=== PATIENT | female | born 1990 | race Caucasian/White ===

== ENCOUNTER 2017-01-12 20:13 | Emergency (ER) | payer OTHER ==
[~2017-01-12] VITALS: Ht 165.1 cm; Wt 61.4 kg
[~2017-01-12 20:13] MED LIST: OXYC1TAB11 PO; PNV1TABL57 PO
[2017-01-12 20:27] VITALS: BP 112/81; PULSE 85; RESP 16; O2SAT 99
--- NOTE | 2017-01-12 21:13 | ED.REPORT ---
HPI-Extremity Problem Upper Date of Service Jan 12, 2017 ED Provider: Ryley Drake DO The patient is a 26 year old female who presents to the ED with right thumb pain hurting it playing softball earlier today. The thumb is swollen and red. Pain is exacerbated by movement. Nursing Notes Stated Complaint: RIGHT THUMB INJURY Chief Complaint: Extremity Trauma Nursing Notes Reviewed: Yes Allergies: Coded Allergies: No Known Allergies (Unverified , 05/03/12) Miscellaneous Medications Oxycodone/APAP-Expunged Drug, Do Not Renew! (Percocet-Expunged Drug, Do Not Renew!) 1 Each Tablet 0.5 EACH PO PNV CMB#95/FERROUS FUMARATE/FA-Expunged Drug, (-Expunged Drug, Do Not Renew!) 1 Each Tablet 1 EACH PO General Time Seen by MD: 21:13 Chief Complaint Finger injury right 1 Hx Obtained From: Patient Arrived By: Walk-in Onset Occurred: Just prior to arrival Symptom Duration: Since onset Caused by: Sports injury Context: Occurred at: Sports injury Location: : Finger right 1 Quality: Painful Severity: Current: Mild Recent Healthcare: No recent doctor visit, No recent hospitalization Similar Sx Previous: No Review of Systems Constitutional: Denies: Fever Musculoskeletal: Reports: Joint pain (right thumb), Joint swelling (right thumb ) Neurologic: Denies: Change LOC, Numbness, Weakness Complete sys rev & neg: except as marked. Physical Exam Initial Vital Signs Vital Signs (First) Date Time Temp Pulse Resp B/P Pulse Ox O2 Delivery O2 Flow Rate FiO2 01/12/17 20:27 36.1 85 16 112/81 99 Room Air Initial VS: Reviewed General/Constitutional: Well-developed, Well-nourished Head / Eyes: Atraumatic, Normocephalic, PERRL ENT: Mucous membranes moist Respiratory: Breath sounds normal, Clear to auscultation Cardiovascular: Regular rate & rhythm, Heart sounds normal Abdomen / GI: Soft, Non-tender, No guarding, No rebound Back: No CVA tenderness Skin: Warm, Dry Right Thumb: Positive: ROM reduced, Swelling present..., Tenderness present... , Warmth present right thumb swelling at the distal interphalangeal joint tendons seem to be intact Interpretation & Diagnostics X-Ray Interpretation Xray Interpretation: IMPRESSION: No visualized acute fracture or dislocation. However, if clinical concern and/or pain persist, short interval imaging followup in 7-10 days is recommended, as occult injury cannot be definitively excluded. Dictated by: Marily Rosen M.D. on 01/12/2017 at 21:15 Approved by: Marily Rosen M.D. on 01/12/2017 at 21:15 X-Ray Ordered: Hand right Interpretation / Wet Read by: Interpret - Radiologist Interpretation: Normal exam Re-Eval/Medical Decision Re-Evaluation/Progress : Time of Eval: 21:20 Patient Status: Pain improved Re-Evaluation/Progress Note: Pt rechecked. X-ray does not show signs of a fracture. Plan to splint and discharge. F/U and RTER warnings given. Pt understands and agrees with plan. Counseled Regarding: Diagnosis, Lab results, Need for follow-up, When/why to return to ED Discharge & Departure Impression: Primary Impression: Thumb contusion Encounter type: initial encounter Damage to nail status: without damage Laterality: right Qualified Code: S60.011A - Contusion of right thumb without damage to nail, initial encounter Disposition: Home Discharge Condition All VS Reviewed: Yes Condition: Stable Patient Instructions: Finger Sprain (ED), Contusions in Adults (ED) Additional Instructions: A fracture was not identified on the x-rays. A hairline fracture could certainly be non-radiographically evident. If pain persists beyond 7 days then follow up and have repeat x-rays. Keep your finger splinted until then. Take Motrin 600 mg as directed for moderate pain. Take 1-2 [place] every 6 hours as needed for more severe pain. Do not drive or drink or consume acetaminophen while taking the Motrin. Return for any problems or any new or worsening symptoms. Follow up with your primary care physician for recheck and repeat x- rays if pain persists. Referrals: Michael Russo MD (PCP) Rafaelibmaylin Attestation Portion of this note were transcribed by Bárbara Hernandez. I, Dr. Drake, personally performed the history, physical exam, and medical decision-making: I reviewed and confirmed the accuracy for the information in the transcribed note. Signed by: manuel De Leon, 01/12/17 2200 copies to: Michael Russo MD, Todd P DO Jan 12, 2017 21:13 Bárbara Hernandez Jan 12, 2017 21:28
--- NOTE | 2017-01-12 21:17 | DRSVH ---
PROCEDURE: X-RAY FINGERS, TWO VIEWS INDICATIONS: PAIN TECHNIQUE: AP hand, 2 views of the first finger(s) acquired. COMPARISON: None. FINDINGS: Bones: No fractures or dislocations. No suspicious bony lesions. Soft tissues: No suspicious soft tissue calcifications. IMPRESSION: No visualized acute fracture or dislocation. However, if clinical concern and/or pain pe rsist, short interval imaging followup in 7-10 days is recommended, as occult injury cannot be defini tively excluded. Dictated by: Marily Rosen M.D. on 01/12/2017 at 21:15 Approved by: Marily Rosen M.D. on 01/12/2017 at 21:15
[2017-01-12] MEDS ORDERED: _HYDROcodone/APAP 5-325 mg Tablet PO PRN (21:30)
== END 2017-01-12 22:02 | disposition home or self-care (01) ==
LOC: SED 20:13
DX: S60.011A Contusion of right thumb without damage to nail, initial encounter (principal); W21.07XA Struck by softball, initial encounter; Y92.328 Other athletic field as the place of occurrence of the external cause; Y93.64 Activity, baseball; Y99.8 Other external cause status; I10 Essential (primary) hypertension

== ENCOUNTER 2017-02-02 16:59 | Emergency (ER) | payer OTHER ==
[~2017-02-02] VITALS: Ht 165.1 cm; Wt 65.0 kg
[2017-02-02 17:12] VITALS: BP 110/68; PULSE 77; RESP 15; O2SAT 100
--- NOTE | 2017-02-02 18:05 | ED.REPORT ---
HPI-Extremity Problem Lower Date of Service February 02, 2017 ED Provider: Dr. Drake Pt is a healthy 26 year old female who presents to the ED with concerns for L knee pain after landing on her knee strangely at a gym. She reports that she was attempting to do a cartwheel off a balance beam, when she fell off and landed on her leg abnormally. She reports that she previously tore her meniscus on this knee, she reports that this pain was more intense than her previous injury. Sje denies any trauma to her head or LOC upon her fall. She has no other complaints. Nursing Notes Stated Complaint: POSSIBLE TORN ALC, LEFT Chief Complaint: Extremity Trauma Nursing Notes Reviewed: Yes Allergies: Coded Allergies: hydrocodone (Verified Adverse Reaction, Intermediate, Nausea,Vomiting, ) Miscellaneous Medications Oxycodone/APAP-Expunged Drug, Do Not Renew! (Percocet-Expunged Drug, Do Not Renew!) 1 Each Tablet 0.5 EACH PO PNV CMB#95/FERROUS FUMARATE/FA-Expunged Drug, (-Expunged Drug, Do Not Renew!) 1 Each Tablet 1 EACH PO General Time Seen by MD: 18:05 Chief Complaint Knee injury left Hx Obtained From: Patient Arrived By: Walk-in Onset Occurred: Just prior to arrival Symptom Duration: Since onset Caused by: Accidental Location: : Knee left Severity: Current: Moderate Severity: Maximum: Moderate Similar Sx Previous: Yes Past Medical History Past Medical History Healthy Past Surgical History L meniscus repair Ambulatory Status Independent Review of Systems Constitutional: Denies: Chills, Fever, Malaise, Weakness - generalized Musculoskeletal: Reports: Joint pain, Denies: Back pain, Neck pain Skin: Denies Diaphoresis Neurologic: Denies: Change LOC, Dizziness, Headache, Syncope, Weakness Complete sys rev & neg: except as marked. Physical Exam Initial Vital Signs Vital Signs (First) Date Time Temp Pulse Resp B/P Pulse Ox O2 Delivery O2 Flow Rate FiO2 02/02/17 17:12 37.1 77 15 110/68 100 Room Air Initial VS: Reviewed General/Constitutional: Well-developed, Well-nourished Head / Eyes: Atraumatic, Normocephalic, PERRL ENT: Mucous membranes moist, Conjunctiva normal, No scleral icterus Neck: Supple, Non-tender, Full range of motion Respiratory: Breath sounds normal, Clear to auscultation, No respiratory distress Cardiovascular: Regular rate & rhythm, Heart sounds normal, Intact distal pulses Skin: Warm, Dry, No cyanosis Neurologic: Alert, Oriented, Nonfocal Psychiatric: Mood/affect normal, Behavior normal, Normal thought content Lower Extremity / Pelvis / MS: No deformity, Neurologic intact, Vascular intact Medial joint line tenderness about the left knee Diffuse swelling Ankle / Foot: Atraumatic, Inspection NL, Full range of motion, Non-tender, No deformity Interpretation & Diagnostics Lab Results Interpretation Test 02/02/17 17:58 Hold Urine Received (Received) X-Ray Interpretation Xray Interpretation: IMPRESSION: No fracture. No osseous lesion. If there are persistent symptoms or clinical suspicion for pathology, then repeat radiographs or advanced imaging (CT, MRI or bone scan) should be considered for further evaluation. Dictated by: La Hopper MD, PhD on 02/02/2017 at 18:23 X-Ray Ordered: Knee left Interpretation / Wet Read by: Interpret - Radiologist Re-Eval/Medical Decision Source of Hx: Old records Re-Evaluation/Progress : Time of Eval: 18:32 Re-Evaluation/Progress Note: Pt is rechecked and informed of her imaging results and the plan to discharge her at this time. She understands and agrees, all questions are addressed. Counseled Regarding: Diagnosis, Lab results, Need for follow-up, When/why to return to ED Discharge & Departure Impression: Primary Impression: Knee injury Encounter type: initial encounter Laterality: left Qualified Code: S89.92XA - Unspecified injury of left lower leg, initial encounter Disposition: Home Discharge Condition All VS Reviewed: Yes Condition: Stable Patient Instructions: Knee Immobilizer (ED) Additional Instructions: Your xrays show no fracture. Please follow up with orthopedics for further evaluation next week. They will consider further imaging if you experiencing continued symptoms. Use the knee immobilizer and crutches until you are able to follow up with orthopedics. Elevate and ice your knee when you are able to. Take ibuprofen to alleviate your pain. For breakthrough pain take 1-2 Percocet. NOTE: this is a narcotic medication and may cause drowsiness. No operating any safety sensitive machinery or drinking alcohol while taking this medication. I hope you start to feel better soon. Referrals: Michael Russo MD (PCP) Baudilio Parker MD Attestation Portions of this note were transcribed by Elizabeth Pond. I, Dr. Drake personally performed the history, physical exam and medical decision-making; I reviewed and confirmed the accuracy of the information in the transcribed note. Signed by: Apolonia Pickett, 02/02/2017 [id number] copies to: Michael Russo MD; Baudilio Parker MD, Todd P DO February 02, 2017 18:05 RAMO POND February 02, 2017 18:22
[2017-02-02] MEDS ORDERED: HYDROmorphone 1 mg/mL Inj IM ONE (18:20)
[2017-02-02] MEDS ORDERED: _oxyCODONE/APAP 5-325 mg Tablet PO PRN (18:25)
--- NOTE | 2017-02-02 18:25 | DRSVH ---
PROCEDURE: X-RAY LEFT KNEE, THREE VIEWS ([id number]) INDICATIONS: injured knee TECHNIQUE: 3 views of the knee were acquired. COMPARISON: None. FINDINGS: Bones: No fractures or dislocations. No suspicious bony lesions. Soft tissues: No joint effusion. No suspicious soft tissue calcifications. IMPRESSION: No fracture. No osseous lesion. If there are persistent symptoms or clinical suspicion f or pathology, then repeat radiographs or advanced imaging (CT, MRI or bone scan) should be considered for further evaluation. Dictated by: La Hopper MD, PhD on 02/02/2017 at 18:23 Approved by: La Hopper MD, PhD on 02/02/2017 at 18:23
[2017-02-02 19:54] VITALS: BP 115/75; PULSE 79; O2SAT 97
== END 2017-02-02 19:57 | disposition home or self-care (01) ==
LOC: SED 16:59
DX: S89.82XA Other specified injuries of left lower leg, initial encounter (principal); W17.89XA Other fall from one level to another, initial encounter; Y93.43 Activity, gymnastics; Y92.39 Other specified sports and athletic area as the place of occurrence of the external cause; Y99.8 Other external cause status; Z88.5 Allergy status to narcotic agent